=== PATIENT | female | born 1955 | race Caucasian/White ===

== ENCOUNTER 2018-07-25 07:34 | Emergency (ER) | payer SELFPAY ==
[2018-07-25 08:07] LABS: Clarity Clear (Clear)
[2018-07-25 08:08] LABS: Bilirubin Negative (Negative); Blood, Urine Trace (Negative); Glucose, Urine (Dipstick) 100 mg/dL (Negative); Leukocyte Trace (Negative); Nitrite Negative (Negative); Protein, Urine (Dipstick) Negative (Neg-Trace); Specific Gravity, Urine 1.031 (1.002-1.036); Urobilinogen 0.2 mg/dL (0.2-1.0); pH, Urine 5.5 (5.0-9.0)
[2018-07-25 08:09] LABS: Bacteria/HPF Rare-Few HPF (None Seen); RBC/HPF 0-3 HPF (0-3); Squamous Epithelial 0-3 HPF (0-3); WBC/HPF 0-3 HPF (0-3)
== END 2018-07-25 08:40 | disposition home or self-care (01) ==
LOC: BURERS 07:34
DX: M54.6 Pain in thoracic spine (principal); R32 Unspecified urinary incontinence; R35.0 Frequency of micturition; J44.9 Chronic obstructive pulmonary disease, unspecified
CPT/HCPCS: 81003; 81015; 99283

== ENCOUNTER 2018-11-22 16:12 | Emergency (ER) | payer SELFPAY ==
[2018-11-22 17:15] LABS: #Basophils 0.1 thou/uL (0.0-0.2); #Eosinphils 0.2 thou/uL (0.0-0.7); #Lymphocytes 2.5 thou/uL (1.20-3.40); #Monocytes 0.6 thou/uL (0.11-0.59); #Neutrophils 8.4 thou/uL (1.40-6.50); %Basophils 0.7 % (0.0-1.0); %Eosinophils 1.5 % (0.0-10.0); %Lymphocytes 21.5 % (21.0-51.0); %Neutrophils 71.3 % (42.0-75.0); Hemoglobin 14.1 g/dL (12.0-16.0); Mean Corpuscular HGB CONC 31.7 g/dL (32.0-36.0); Mean Corpuscular Hemoglobin 29.1 pg (27.0-31.0); Mean Corpuscular Volume 91.9 fL (78.0-98.0); Mean Platelet Volume 8.3 fL (7.4-10.4); Platelet Count 285 thou/uL (130-400); RBC Distribution Width 12.5 % (11.5-14.5); Red Blood Cell (RBC) Count 4.83 mill/uL (4.20-5.40); White Blood Cell (WBC) Count 11.8 thou/uL (4.8-10.8)
[2018-11-22 17:29] LABS: ALT (SGPT) 32 U/L (8-55); AST (SGOT) 19 U/L (5-34); Albumin 4.3 g/dL (3.4-4.8); Alkaline Phosphatase 111 U/L (40-150); Anion Gap 13 mmol/L (10-20); BUN (Urea Nitrogen) 12 mg/dL (9.8-20.1); Bilirubin, Total 0.3 mg/dL (0.2-1.2); Calc. Creatinine Clearance 0 mL/min (70-130); Calcium 10.7 mg/dL (7.8-10.44); Carbon Dioxide 25 mmol/L (23-31); Chloride 104 mmol/L (98-107); Estimated GFR-MDRD 85; Globulin 3.2 g/dL (2.4-3.5); Glucose 91 mg/dL (80-115); Potassium 4.1 mmol/L (3.5-5.1); Protein, Total 7.5 g/dL (6.0-8.3); Sodium 138 mmol/L (136-145)
[2018-11-22 17:30] LABS: Clarity SLIGHTLY (Clear); Leukocyte Trace (Negative); Nitrite Negative (Negative)
[2018-11-22 17:31] LABS: Bacteria/HPF Rare-Few HPF (None Seen); Bilirubin Negative (Negative); Blood, Urine Small (Negative); Glucose, Urine (Dipstick) Negative (Negative); Oval Fat Bodies/HPF None Seen HPF (None Seen); Protein, Urine (Dipstick) 30 mg/dL (Neg-Trace); RBC/HPF 0-3 HPF (0-3); Renal Epithelial None Seen HPF (0-3); Sperm/HPF None Seen HPF (None Seen); Squamous Epithelial 0-3 HPF (0-3); Transitional Epithelial NONE SEEN HPF (0-3); Trichomonas/HPF None Seen HPF (None Seen); Urobilinogen 0.2 mg/dL (0.2-1.0); Yeast-All Forms None Seen HPF (None Seen)
[2018-11-22 17:32] LABS: Crystals/HPF 1+ CA OXALATE HPF (Negative); Hyaline Casts/LPF NONE SEEN LPF (0-3 Hyaline); Other Casts/LPF None Seen LPF (0-3 Hyaline)
[2018-11-22] MEDS ORDERED: Ibuprofen 800 MG TAB ONE (17:40)
== END 2018-11-22 17:59 | disposition home or self-care (01) ==
LOC: BURERS 16:12
DX: M25.562 Pain in left knee (principal); J44.9 Chronic obstructive pulmonary disease, unspecified
CPT/HCPCS: 80053; 81003; 81015; 85025; 85379; 93005

== ENCOUNTER 2018-11-25 07:33 | Emergency (ER) | payer SELFPAY ==
[2018-11-25] MEDS ORDERED: Acetaminophen/Codeine 30-300mg Tablet ONE (08:55)
[2018-11-25] MEDS ORDERED: Ketorolac Tromethamine 60 MG/2 ML VIAL ONE (08:55)
--- NOTE | 2018-11-25 17:19 | RAD ---
LEFT KNEE FIVE VIEWS: 11/25/18 There may be a small joint effusion. The bones themselves appear normal with no sign of fracture or d islocation. The articular surfaces are smooth and the joint space is normal in appearance. IMPRESSION: No acute bony findings. Possible small effusion. POS: HOME
== END 2018-11-25 09:14 | disposition home or self-care (01) ==
LOC: BURERS 07:33
DX: M25.562 Pain in left knee (principal); J44.9 Chronic obstructive pulmonary disease, unspecified
CPT/HCPCS: 96372; J1885

== ENCOUNTER 2021-02-18 12:20 | Emergency (ER) | payer SELFPAY ==
[2021-02-18 12:38] LABS: Bilirubin Small (Negative); Blood, Urine Large (Negative); Clarity Cloudy (Clear); Glucose, Urine (Dipstick) Negative (Negative); Ketone, Urine Negative (Negative); Leukocyte Small (Negative); Nitrite Positive (Negative); Protein, Urine (Dipstick) > or equal to 300 mg/dL (Neg-Trace); Specific Gravity, Urine 1.019 (1.002-1.036); Urobilinogen 0.2 mg/dL (Less than 2)
[2021-02-18 12:40] LABS: RBC/HPF Greater than 50 HPF (0-3); WBC/HPF 21-50 HPF (0-3)
[2021-02-18 12:41] LABS: Bacteria/HPF 3+ HPF (None Seen); Mucous/LPF Few LPF (<2+)
[2021-02-18] MEDS ORDERED: cefTRIAXone\\ROCEPHIN 1 GM VIAL ONE (12:56)
[2021-02-18] MEDS ORDERED: Lidocaine 1% PF 5 ML VIAL ONE (12:56)
== END 2021-02-18 12:55 | disposition home or self-care (01) ==
LOC: BURERS 12:20
DX: N12 Tubulo-interstitial nephritis, not specified as acute or chronic (principal); N39.0 Urinary tract infection, site not specified; J44.9 Chronic obstructive pulmonary disease, unspecified
CPT/HCPCS: 81003; 81015; 96372; 99283; J0696

== ENCOUNTER 2021-03-01 13:30 | Emergency (ER) | payer SELFPAY ==
[2021-03-01 14:06] LABS: Bilirubin Small (Negative); Blood, Urine Large (Negative); Clarity Turbid (Clear); Glucose, Urine (Dipstick) Negative (Negative); Ketone, Urine Negative (Negative); Leukocyte Small (Negative); Nitrite Negative (Negative); Protein, Urine (Dipstick) > or equal to 300 mg/dL (Neg-Trace); Urobilinogen 0.2 mg/dL (Less than 2); pH, Urine 6.5 (5.0-9.0)
[2021-03-01 14:10] LABS: Specific Gravity, Urine 1.018 (1.002-1.036)
[2021-03-01 14:12] LABS: RBC/HPF Greater than 50 HPF (0-3)
[2021-03-01 14:13] LABS: Bacteria/HPF 2+ HPF (None Seen)
[2021-03-01] MEDS ORDERED: Sulfameth/Trimethoprim DS 800-160mg TAB ONE (15:02)
== END 2021-03-01 15:09 | disposition home or self-care (01) ==
LOC: BURERS 13:30
DX: N39.0 Urinary tract infection, site not specified (principal); J44.9 Chronic obstructive pulmonary disease, unspecified
CPT/HCPCS: 81003; 81015; 87086; 99283

== ENCOUNTER 2021-06-30 10:47 | Emergency (ER) | payer SELFPAY ==
[2021-06-30] MEDS ORDERED: Dexamethasone 4 MG TAB ONE (11:21)
[2021-06-30] MEDS ORDERED: Sulfameth/Trimethoprim DS 800-160mg TAB ONE (11:21)
== END 2021-06-30 11:25 | disposition home or self-care (01) ==
LOC: BURERS 10:47
DX: J01.10 Acute frontal sinusitis, unspecified (principal); J44.9 Chronic obstructive pulmonary disease, unspecified
CPT/HCPCS: 99283; J8540